=== PATIENT | male | born 1965 | race Caucasian/White ===

== ENCOUNTER 2023-09-18 06:07 | Day surgery (SDC) | payer OTHER, SELFPAY ==
[2023-09-04 13:05] VITALS: BMI 28.8
[2023-09-04 13:52] LABS: Hematocrit 44.4 % (39.0-52.0); Hemoglobin 15.2 g/dL (13.0-18.0); Mean Corp Hgb Conc. 34.2 g/dL (33.0-37.0); Mean Corpuscular Hgb 29.1 pg (27.0-31.0); Mean Corpuscular Volume 84.9 fL (80.0-94.0); Mean Platelet Volume 9.6 fL (7.4-10.4); Platelet Count 266 10^3/uL (130-400); Red Blood Cell Count 5.23 10^6/uL (4.70-6.10); Red Cell Dist. Width 12.7 % (11.5-14.5); White Blood Cell Count 6.7 10^3/uL (4.8-10.8)
--- NOTE | 2023-09-05 12:20 | PTCARENOTE ---
Patients 09/03 ECG abnormal- reviewed by Dr. Hernandez- no additional interventions required
[2023-09-18] VITALS (12 sets, daily range): BP systolic 112–129; BP diastolic 63–85; BMI 28.8
[2023-09-18] MEDS: NORMOSOL-R 1000 IV (06:50)
--- NOTE | 2023-09-18 11:25 | PTCARENOTE ---
Patient voided 20 ml of urine. Patient required to void prior to discharge. Dr. Valente aware of void amount and ok for patient to be d/c.
== END 2023-09-18 11:34 | disposition home or self-care (01) ==
LOC: SDS 06:07
PROVIDERS: ATTENDING PHYSICIAN Specialist; FAMILY PHYSICIAN Family Medicine
DX: N46.01 Organic azoospermia (principal)
CPT/HCPCS: 55400; 36415; 85027; 93005

== ENCOUNTER → 2024-05-21 13:02 | Outpatient (REF) | payer OTHER, SELFPAY | LOC: HWRAD 13:02 | PROVIDERS: ATTENDING PHYSICIAN Family Medicine | DX: R41.3 Other amnesia (principal); R51.9 Headache, unspecified | CPT/HCPCS: 70450 ==

== ENCOUNTER → 2024-07-14 06:36 | Outpatient (REF) | payer OTHER, SELFPAY | LOC: MRI 06:36 | PROVIDERS: ATTENDING PHYSICIAN Radiology Diagnostic Radiology; FAMILY PHYSICIAN Family Medicine | DX: M25.532 Pain in left wrist (principal) | CPT/HCPCS: 73221 ==

== ENCOUNTER → 2024-10-13 14:42 | Outpatient (REF) | payer OTHER, SELFPAY | LOC: EMG 14:42 | PROVIDERS: ATTENDING PHYSICIAN Pain Medicine Interventional Pain Medicine; FAMILY PHYSICIAN Family Medicine | DX: M54.12 Radiculopathy, cervical region (principal); R20.0 Anesthesia of skin | CPT/HCPCS: 95886; 95909 ==